=== PATIENT | female | born 1990 | race African-American/Black ===

== ENCOUNTER 2016-05-27 17:51 | Emergency (ER) | payer BC ==
[~2016-05-27] VITALS: Ht 172.7 cm; Wt 73.1 kg
[~2016-05-27 17:51] MED LIST: BCPILLS PO
[2016-05-27 18:04] VITALS: TEMP 36.8; Ht 172.7 cm; Wt 73.1 kg
--- NOTE | 2016-05-27 18:36 | EMERGENCY ROOM VISIT NOTE ---
ED Visit Note First contact with patient: 18:18 CHIEF COMPLAINT irritated throat / HISTORY OF PRESENT ILLNESS: This 26-year-old female presents the ER with chief complaint of intermittent "scratchy" throat mainly on the left side for the past 4 days. The patient also admits to some intermittent head congestion but denies any fever, ear pain, cough or chest pain. The patient states that she just moved to a new townhouse and thinks that the area is very dry and she went and got a humidifier. The patient states she normally has problems with allergic rhinitis in the spring but the remainder of the year she does not need to take any medications therefore she is not taking her Zyrtec right now. REVIEW OF SYSTEMS: 6 system review was performed and was negative unless stated otherwise in history of present illness. PMH: The patient is healthy; tonsillectomy, allergic rhinitis SOCIAL HISTORY: Patient denies tobacco use but admits to occasional alcohol use. PHYSICAL EXAM: Vital Signs were reviewed: Reviewed Nurse's notes and agree. Oxygen saturation is 100 % on room air which is normal . GENERAL: 26-year-old female appears in no acute distress. MENTAL STATUS: Alert, oriented, coherent. EARS: Canals with cerumen unable to visualize TMs. NOSE: Turbinates appear pale and boggy bilaterally. . PHARYNX: Tonsils are absent. Posterior pharynx with cobblestoning noted. No exudate noted. Airway is adequate. NECK: Supple, non-tender. No lymphadenopathy noted. LUNGS: Clear to auscultation without wheezes rales or rhonchi. CARDIAC: Regular rate and rhythm without murmur. SKIN : No rashes noted. DIAGNOSIS: Allergic rhinitis DISCHARGE INSTRUCTIONS & TREATMENT: Recommend taking Zyrtec daily. If you have any postnasal drainage also recommend using [id number] Nasacort as directed. If symptoms persist or worsen, follow-up with your family physician. Current/Historical Medications Scheduled Control Pills ( Control Pills), 1 TAB PO DAILY Allergies Coded Allergies: No Known Allergies (Unverified , 12/25/11) Vital Signs Date Time Temp Pulse Resp B/P Pulse Ox O2 Delivery O2 Flow Rate FiO2 05/27/16 18:06 100 Room Air 05/27/16 18:04 36.8 67 20 123/86 100 Room Air Departure Information Referrals No Doctor, Assigned (PCP) Patient Instructions [facility]
[2016-05-27] MEDS ORDERED: ASPI325T39 PO (18:41)
[2016-05-27 18:49] VITALS: BP 112/70; PULSE 70; O2SAT 99
== END 2016-05-27 18:49 | disposition home or self-care (01) ==
LOC: C.EDB 17:53 → C.EDD 18:49
DX: J30.9 Allergic rhinitis, unspecified (principal); Z79.3 Long term (current) use of hormonal contraceptives